=== PATIENT | female | born 1990 | race Caucasian/White ===

== ENCOUNTER 2016-09-17 01:11 | Emergency (ER) | payer OTHER ==
[2016-09-17 01:22] VITALS: BP 141/102
--- NOTE | 2016-09-17 01:29 | EDM.PDOC ---
ED HPI GENERAL MEDICAL PROBLEM - General Chief Complaint: ENT Problem Stated Complaint: SWOLLOWED A NEEDLE Time Seen by Provider: 09/17/16 01:19 Source of Information: Reports: Patient, Family (), RN Notes Reviewed History Limitations: Reports: No Limitations - History of Present Illness INITIAL COMMENTS - FREE TEXT/NARRATIVE: The patient states that she was cross-stitching, and holding a cross-stitching needle, measuring approximately 2 inches, metal, in her mouth, when she accidentally swallowed it, around 10 minutes ago, 01:10. She states that she can feel it in her esophagus, and feels like it is lodged horizontally. She can swallow, but it hurts to do so. No respiratory difficulty. - Related Data Allergies Allergy/AdvReac Type Severity Reaction Status Date / Time amoxicillin Allergy Rash Verified 09/17/16 01:23 clarithromycin [From Biaxin] Allergy Stomach Verified 09/17/16 01:23 Ache Past Medical History Psychiatric History: Reports: Anxiety Endocrine/Metabolic History: Reports: Obesity/BMI 30+ Social & Family History - Tobacco Use Smoking Status *Q: Never Smoker - Alcohol Use Alcohol Use History: Yes Alcohol Use Frequency: Rarely - Recreational Drug Use Recreational Drug Use: No - Living Situation & Occupation Living situation: Reports: , with Spouse Occupation: Employed (Teacher at [employer]) ED ROS GENERAL - Review of Systems Review Of Systems: See Below Constitutional: Reports: No Symptoms HEENT: Reports: No Symptoms Respiratory: Reports: No Symptoms Cardiovascular: Reports: No Symptoms Endocrine: Reports: No Symptoms GI/Abdominal: Reports: No Symptoms : Reports: No Symptoms Musculoskeletal: Reports: No Symptoms Skin: Reports: No Symptoms Neurological: Reports: No Symptoms Psychiatric: Reports: No Symptoms Hematologic/Lymphatic: Reports: No Symptoms Immunologic: Reports: No Symptoms ED EXAM, GENERAL - Physical Exam Exam: See Below Exam Limited By: No Limitations General Appearance: Alert, WD/WN, No Apparent Distress Eye Exam: Bilateral Eye: Normal Inspection Ears: Normal External Exam, Hearing Grossly Normal Ear Exam: Bilateral Ear: Auricle Normal Nose: Normal Inspection, No Blood Throat/Mouth: Normal Inspection, Normal Lips, Normal Voice, No Airway Compromise Head: Atraumatic, Normocephalic Neck: Normal Inspection, Full Range of Motion Respiratory/Chest: No Respiratory Distress, Lungs Clear, Normal Breath Sounds, No Accessory Muscle Use Cardiovascular: Normal Peripheral Pulses, Regular Rate, Rhythm, No Gallop, No JVD, No Murmur, No Rub Peripheral Pulses: 4+: Radial (L), Radial (R) GI/Abdominal: Normal Bowel Sounds, Soft, Non-Tender, No Organomegaly, No Distention, No Abnormal Bruit, No Mass, Other (Obese) (Female) Exam: Deferred Rectal (Female) Exam: Deferred Back Exam: Normal Inspection, Full Range of Motion, NT Extremities: Normal Inspection, Normal Range of Motion, No Pedal Edema, Normal Capillary Refill Neurological: Alert, Oriented, Normal Cognition, Normal Gait, No Motor/Sensory Deficits Psychiatric: Normal Affect Skin Exam: Warm, Dry, Intact, Normal Color, No Rash Lymphatic: No Adenopathy Course - Vital Signs Last Recorded V/S: Last Vital Signs Temp 35.9 C 09/17/16 01:18 Pulse 93 09/17/16 01:18 Resp 16 09/17/16 01:18 BP 141/102 H 09/17/16 01:18 Pulse Ox 100 09/17/16 01:18 - Orders/Labs/Meds Orders: Active Orders 24 hr Category Date Time Status Abdomen 1V Upright [CR] Stat Exams 09/17/16 01:37 Ordered Chest 1V Frontal [CR] Stat Exams 09/17/16 01:24 Ordered Neck Soft Tissue [CR] Stat Exams 09/17/16 01:33 Taken - Radiology Interpretation Free Text/Narrative:: 2-view radiograph of the soft tissue of the neck appears to be grossly unremarkable. No foreign body identified. Formal read per the Radiologist pending. Portal chest radiograph appears to be grossly unremarkable. No foreign body identified. Formal read per the Radiologist pending. Flat abdominal radiograph appears to be grossly unremarkable. No foreign body identified. Formal read per the Radiologist pending. - Re-Assessments/Exams Free Text/Narrative Re-Assessment/Exam: 09/17/16 02:07 No foreign body, metallic or otherwise, seen on radiographs of her neck, chest, and abdomen. Given that the act of swallowing a metal needle would be physically difficult and highly unlikely to occur on accident, I strongly doubt the patient actually swallowed a needle. I will refer her to Dr. Pratt to arrange for an EGD, if desired. Departure - Departure Time of Disposition: 02:08 Disposition: Home, Self-Care 01 Condition: good Clinical Impression: Sensation of foreign body in esophagus - Discharge Information Referrals: Tiffanie Urrutia PA-C [Primary Care Provider] - Matthew Pratt MD [Physician] - Forms: ED Department Discharge Additional Instructions: You were seen in the emergency room for a concern of swallowing a cross stitching needle. X-rays of your neck, chest, and abdomen do not show any foreign bodies. If you continue to have the sensation of something stuck in your esophagus, please followup with the Surgeon, Dr. Matthew Pratt, to arrange for an EGD. If any other problems, please do not hesitate to return to the ER. - My Orders Last 24 Hours: My Active Orders 09/17/16 01:24 Chest 1V Frontal [CR] Stat 09/17/16 01:33 Neck Soft Tissue [CR] Stat 09/17/16 01:37 Abdomen 1V Upright [CR] Stat - Assessment/Plan Last 24 Hours: My Active Orders 09/17/16 01:24 Chest 1V Frontal [CR] Stat 09/17/16 01:33 Neck Soft Tissue [CR] Stat 09/17/16 01:37 Abdomen 1V Upright [CR] Stat
--- NOTE | 2016-09-17 08:04 | CR ---
Chest: Portable view of the chest was obtained. Comparison: No prior study. Heart size and mediastinum are normal. Lungs are clear. No opaque foreign body is seen. Bony structures are unremarkable. Impression: 1. Nothing acute is identified on portable chest x-ray. Diagnostic code #1
--- NOTE | 2016-09-17 08:04 | CR ---
Neck: Two views of the neck were obtained. Prevertebral soft tissues are normal. No opaque foreign object is identified. Minimal posterior spurring is noted at C4-C5. Impression: 1. Incidental findings. No opaque foreign object is seen. Diagnostic code #2
--- NOTE | 2016-09-17 08:04 | CR ---
Abdomen: Supine view of the abdomen was obtained. No opaque foreign object is seen. Bowel gas pattern is unremarkable. No abnormal calcifications or soft tissue abnormality is seen. Impression: 1. No abnormality is identified on supine abdominal x-ray. Diagnostic code #1
== END 2016-09-17 02:23 | disposition home or self-care (01) ==
LOC: JD.ED 01:11
DX: K22.8 Other specified diseases of esophagus (principal); F41.9 Anxiety disorder, unspecified; E66.9 Obesity, unspecified; Z88.1 Allergy status to other antibiotic agents
CPT/HCPCS: 70360; 70360-26; 71010; 71010-26; 74000; 74000-26; 99282; 99283